=== PATIENT | male | born 2005 | race African-American/Black ===

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

== ENCOUNTER 2025-03-31 14:00 | Emergency (ER) | payer OTHER, SELFPAY ==
[2025-03-31] VITALS (20 sets, daily range): BP systolic 115–149; BP diastolic 56–87; PULSE 63–101; RESP 16–28; TEMP 36.6; O2SAT 98–100; BMI 22.3
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
--- NOTE | 2025-03-31 14:30 | PC.NURSE ---
Pt with episode of emesis. Reports feeling better after.
[2025-03-31] MEDS: ONDANSETRON 4 MG/2 ML INJ IV (15:13)
[2025-03-31] MEDS: KETOROLAC 30 MG/ML VIAL 15 MG IV (16:41)
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
== END 2025-03-31 17:35 | disposition home or self-care (01) ==
PROVIDERS: Emergency Provider Student in an Organized Health Care Education/Training Program; PCP Physician Assistant Medical
DX: S06.0X0A Concussion without loss of consciousness, initial encounter (principal); S10.91XA Abrasion of unspecified part of neck, initial encounter; S40.211A Abrasion of right shoulder, initial encounter; R00.0 Tachycardia, unspecified; V86.56XA Driver of dirt bike or motor/cross bike injured in nontraffic accident, initial encounter
CPT/HCPCS: 36415; 70450; 96374; 96375; 99284; J1885; J2405